=== PATIENT | female | born 1940 | race Caucasian/White ===

== ENCOUNTER 2016-12-10 18:17 | Inpatient (IN) | payer OTHER ==
[~2016-12-10] VITALS: Ht 149.9 cm; Wt 112.9 kg
[~2016-12-10 18:17] MED LIST: ADVAIR 250/501 DISK IH; AMBIEN10 M1 PO; AMBIEN10 MG PO; AMOX TR-K CLV1 EAC4 PO; CALCIUM + D 601 EACH PO; CELEXA10 MG PO; COZAAR50 MG PO; CRESTOR20 MG PO; CYTOTEC100 MCG PO; DOLOPHINE HCL10 MG PO; DONEPEZIL HCL5 MG PO; DOXEPIN HCL10 MG PO; EFFER-K 20 MEQ20 MEQ PO; FLORASTOR250 MG PO; FUROSEMIDE20 MG PO; GLUCOPHAGE500 MG PO; Glucophage PO; K-DUR10 MEQ PO; K-DUR20 MEQ PO; K-Dur PO; K-TAB10 MEQ PO; LASIX40 MG PO; LEVOFLOXACIN500 MG PO; LEXAPRO10 MG PO; LIPITOR20 MG PO; LIPITOR40 MG PO; LISINOPRIL10 MG PO; LOPRESSOR50 MG PO; LUMIGAN 0.50 DROP/2. BOTH EYES; LUMIGAN 0.50 DROP/22 BOTH EYES; LUMIGAN2.5 M1 BOTH EYES; Lopressor PO; METFORMIN HCL500 MG PO; METHADONE5 MG PO; METOPROLOL SUC200 MG PO; MIRALAX17 GM PO; MISOPROSTOL100 MCG PO; NEXIUM40 MG PO; OXYCODONE-APAP1 EACH PO; PREDNISONE20 MG PO; PRILOSEC20 MG PO; PROAIR HFA8.5 GM IH; PROVENTIL,2.5 MG/3 M IH; SINEQUAN50 MG PO; SINGULAIR10 MG PO; STOOL SOFTENER1 EAC2 PO; SULINDAC200 MG PO; TOPROL XL100 MG PO; VITAMIN E100 UNIT PO; XANAX0.125 MG PO; ZOLPIDEM TARTRAT5 MG PO
[2016-12-10 18:45] LABS: EOSINOPHIL (%) 0.6 % (0-5); EOSINOPHIL COUNT 0.1 K/uL (0-0.3); HEMATOCRIT 40.2 % (36.0-46.0); IMMATURE GRANULOCYTE (%) 0.5 % (0.0-0.7); INSTRUMENT ABS NEUTROPHIL CT 5.8 K/uL; LYMPHOCYTE COUNT 1.4 K/uL (1.0-2.8); MCH 27.7 PG (29.0-34.0); MCHC 31.1 G/DL (30.0-36.0); MCV 88.9 FL (83-99); MEAN PLAT.VOLUME 10.8 uM^3 (9.5-12.4); MONOCYTE (%) 8.6 % (3-12); MONOCYTE COUNT 0.7 K/uL (0-0.8); NEUTROPHIL (%) 72.6 % (45-76); NEUTROPHIL COUNT 5.8 K/uL (1.8-6.4); PLATELET COUNT 264 K/uL (156-360); RBC DIS.WIDTH-CV 13.4 % (11.8-14.6); RBC DIS.WIDTH-SD 43.9 % (39-53); RED BLOOD COUNT 4.52 M/uL (3.80-5.20)
[2016-12-10 18:55] LABS: CHLORIDE 94 mEq/L (99-109); POTASSIUM 4.6 mEq/L (3.7-5.4); SODIUM 137 mEq/L (136-147)
[2016-12-10 18:58] LABS: GLUCOSE 193 mg/dL (70-99)
[2016-12-10 18:59] LABS: ANION GAP 12 MEQ/L (2-14)
[2016-12-10 19:00] LABS: TOTAL BILIRUBIN 0.2 mg/dL (0.0-1.0)
[2016-12-10 19:01] LABS: ALKALINE PHOSPHATASE 69 IU/L (3-129); GFR ESTIMATE (CALCULATED) > 59 mL/min/
[2016-12-10 19:03] LABS: UREA NITROGEN (BUN) 24 mg/dL (9-23)
[2016-12-10 19:05] LABS: TROP-I INTERPRETATION NEGATIVE; TROPONIN-I 0.01 ng/mL (0.0-0.30)
[2016-12-10 23:08] VITALS: BP 155/73
[2016-12-10 23:59] LABS: PROTHROMBIN TIME 10.4 (9.2-11.2); PTT 24.8 (25-32)
[2016-12-11 03:51] VITALS: BP 125/67
[2016-12-11 06:22] LABS: HEMATOCRIT 36.9 % (36.0-46.0); MCH 27.3 PG (29.0-34.0); MCHC 30.4 G/DL (30.0-36.0); MEAN PLAT.VOLUME 10.9 uM^3 (9.5-12.4); PLATELET COUNT 218 K/uL (156-360); RBC DIS.WIDTH-CV 13.8 % (11.8-14.6); WHITE BLOOD COUNT 6.5 K/uL (4.1-10.2)
[2016-12-11 06:42] LABS: TROP-I INTERPRETATION NEGATIVE; TROPONIN-I 0.08 ng/mL (0.0-0.30)
[2016-12-11 07:45] LABS: POINT-OF-CARE METER ID UU13113781; POINT-OF-CARE USER ID NUTSLF44
[2016-12-11 07:51] LABS: ANION GAP 9 MEQ/L (2-14); CHLORIDE 99 MEQ/L (99-109); GFR ESTIMATE (CALCULATED) > 59 mL/min/; GLUCOSE 130 mg/dL (70-99); POTASSIUM 4.1 MEQ/L (3.7-5.4); SAMPLE HEMOLYSIS CHECK 0; SAMPLE ICTERIC CHECK 0; SAMPLE LIPEMIA CHECK 0; SODIUM 138 MEQ/L (136-147); UREA NITROGEN (BUN) 14 mg/dL (9-23)
[2016-12-11 09:18] LABS: LIPASE 82 U/L (1.0-51.0)
[2016-12-11 09:33] VITALS: BP 122/100
[2016-12-11 11:40] VITALS: BP 110/82
[2016-12-11 11:43] LABS: POINT-OF-CARE METER ID UU13113781; POINT-OF-CARE USER ID NUTSLF44
[2016-12-11] MEDS ORDERED: METOPROLOL TART50 MG PO (12:53)
[2016-12-11] MEDS ORDERED: ZESTRIL10 MG PO (12:54)
[2016-12-11] MEDS ORDERED: MIRALAX255 GM PO (12:55)
[2016-12-11] MEDS ORDERED: DONEPEZIL HCL5 MG PO (12:55)
[2016-12-11] MEDS ORDERED: ATORVASTATIN CA10 MG PO (12:56)
[2016-12-11 13:37] LABS: TROP-I INTERPRETATION NEGATIVE; TROPONIN-I 0.06 ng/mL (0.0-0.30)
[2016-12-11 16:50] VITALS: BP 136/88
[2016-12-11 17:06] LABS: POINT-OF-CARE METER ID UU13113781; POINT-OF-CARE USER ID NUTSLF44
[2016-12-11 19:20] VITALS: BP 172/72
[2016-12-11 20:58] LABS: POINT-OF-CARE METER ID UU13113781
[2016-12-11 23:53] VITALS: BP 130/69
[2016-12-12] VITALS (7 sets, daily range): BP systolic 106–157; BP diastolic 68–97
[2016-12-12 07:35] LABS: POINT-OF-CARE METER ID UU14174216
[2016-12-12 09:07] LABS: EOSINOPHIL (%) 1.5 % (0-5); EOSINOPHIL COUNT 0.1 K/uL (0-0.3); IMMATURE GRANULOCYTE (%) 0.4 % (0.0-0.7); INSTRUMENT ABS NEUTROPHIL CT 4.7 K/uL; MCH 27.9 PG (29.0-34.0); MCHC 30.5 G/DL (30.0-36.0); MCV 91.3 FL (83-99); MEAN PLAT.VOLUME 10.7 uM^3 (9.5-12.4); MONOCYTE (%) 8.3 % (3-12); MONOCYTE COUNT 0.6 K/uL (0-0.8); NEUTROPHIL COUNT 4.7 K/uL (1.8-6.4); PLATELET COUNT 252 K/uL (156-360); RBC DIS.WIDTH-SD 46.6 % (39-53); RED BLOOD COUNT 4.27 M/uL (3.80-5.20); WHITE BLOOD COUNT 7.4 K/uL (4.1-10.2)
[2016-12-12 09:36] LABS: ANION GAP 8 MEQ/L (2-14); CHLORIDE 95 MEQ/L (99-109); GFR ESTIMATE (CALCULATED) > 59 mL/min/; GLUCOSE 125 mg/dL (70-99); MAGNESIUM 1.9 mg/dl (1.3-2.7); SAMPLE HEMOLYSIS CHECK 0; SAMPLE ICTERIC CHECK 0; SAMPLE LIPEMIA CHECK 0; SODIUM 134 MEQ/L (136-147); UREA NITROGEN (BUN) 9 mg/dL (9-23)
[2016-12-12 11:19] LABS: POINT-OF-CARE METER ID UU14174216
[2016-12-12 16:17] LABS: POINT-OF-CARE METER ID UU13113698
[2016-12-12 21:18] LABS: POINT-OF-CARE METER ID UU14174216
[2016-12-13 04:17] VITALS: BP 159/94
[2016-12-13 06:42] LABS: EOSINOPHIL (%) 0.1 % (0-5); HEMATOCRIT 39.3 % (36.0-46.0); IMMATURE GRANULOCYTE (%) 0.6 % (0.0-0.7); IMMATURE GRANULOCYTE COUNT 0.1 K/uL; LYMPHOCYTE COUNT 0.6 K/uL (1.0-2.8); MCH 27.4 PG (29.0-34.0); MCHC 30.3 G/DL (30.0-36.0); MCV 90.3 FL (83-99); MEAN PLAT.VOLUME 11.3 uM^3 (9.5-12.4); MONOCYTE COUNT 0.1 K/uL (0-0.8); NEUTROPHIL (%) 90.7 % (45-76); PLATELET COUNT 274 K/uL (156-360); RBC DIS.WIDTH-CV 13.9 % (11.8-14.6); RED BLOOD COUNT 4.35 M/uL (3.80-5.20); WHITE BLOOD COUNT 7.7 K/uL (4.1-10.2)
[2016-12-13 07:03] LABS: ANION GAP 8 MEQ/L (2-14); CHLORIDE 91 MEQ/L (99-109); GFR ESTIMATE (CALCULATED) > 59 mL/min/; GLUCOSE 171 mg/dL (70-99); POTASSIUM 4.5 MEQ/L (3.7-5.4); SAMPLE HEMOLYSIS CHECK 0; SAMPLE ICTERIC CHECK 0; SAMPLE LIPEMIA CHECK 0; SODIUM 129 MEQ/L (136-147); UREA NITROGEN (BUN) 12 mg/dL (9-23)
[2016-12-13 08:00] VITALS: BP 127/71
[2016-12-13 09:56] LABS: BASE EXCESS 0.6 mEq/L (-3 to +3); BICARBONATE 29.6 mEq/L (22-26); CARBOXY HGB 1.8 % (0-5); METHEMOGLOBIN 1.7 % (0-1.5); PO2 105 mm Hg (80-100)
[2016-12-13 09:57] LABS: COMMENTS - BLOOD GASES A+C+; DEVICE NC; O2 FLOW 6 L/MIN; PCO2 69 mm Hg (35-45); SITE LR; TOTAL RESP RATE 20 resp/min
[2016-12-13 09:58] LABS: pH 7.24 (7.35-7.45)
[2016-12-13 12:27] LABS: POINT-OF-CARE METER ID UU14174216
[2016-12-13 13:59] VITALS: BP 145/65
[2016-12-13 17:32] VITALS: BP 138/74
[2016-12-13 19:17] VITALS: BP 127/75
[2016-12-13 23:51] VITALS: BP 102/63
[2016-12-14 03:10] VITALS: BP 135/65
[2016-12-14 07:22] LABS: EOSINOPHIL (%) 0 % (0-5); HEMATOCRIT 35.1 % (36.0-46.0); IMMATURE GRANULOCYTE (%) 0.6 % (0.0-0.7); IMMATURE GRANULOCYTE COUNT 0.1 K/uL; INSTRUMENT ABS NEUTROPHIL CT 9.6 K/uL; LYMPHOCYTE COUNT 0.8 K/uL (1.0-2.8); MCH 27.8 PG (29.0-34.0); MCHC 30.5 G/DL (30.0-36.0); MCV 91.2 FL (83-99); MEAN PLAT.VOLUME 11.1 uM^3 (9.5-12.4); MONOCYTE (%) 3.2 % (3-12); MONOCYTE COUNT 0.4 K/uL (0-0.8); NEUTROPHIL (%) 88.8 % (45-76); NEUTROPHIL COUNT 9.6 K/uL (1.8-6.4); PLATELET COUNT 246 K/uL (156-360); RBC DIS.WIDTH-SD 47.1 % (39-53); RED BLOOD COUNT 3.85 M/uL (3.80-5.20); WHITE BLOOD COUNT 10.8 K/uL (4.1-10.2)
[2016-12-14 07:41] LABS: POINT-OF-CARE METER ID UU13113781
[2016-12-14 08:19] LABS: ANION GAP 12 MEQ/L (2-14); CHLORIDE 93 MEQ/L (99-109); GFR ESTIMATE (CALCULATED) > 59 mL/min/; GLUCOSE 198 mg/dL (70-99); POTASSIUM 4.7 MEQ/L (3.7-5.4); SAMPLE HEMOLYSIS CHECK 0; SAMPLE ICTERIC CHECK 0; SAMPLE LIPEMIA CHECK 0; SODIUM 131 MEQ/L (136-147); UREA NITROGEN (BUN) 28 mg/dL (9-23)
[2016-12-14 08:40] VITALS: BP 131/70
[2016-12-14 09:06] LABS: BASE EXCESS 1.5 mEq/L (-3 to +3); CARBOXY HGB 1.9 % (0-5); METHEMOGLOBIN 1.4 % (0-1.5); PCO2 59 mm Hg (35-45); PO2 82 mm Hg (80-100)
[2016-12-14 09:07] LABS: COMMENTS - BLOOD GASES A+C+; DEVICE NC; O2 FLOW 4 L/MIN; SITE LR; TOTAL RESP RATE 24 resp/min
[2016-12-14 11:14] LABS: POINT-OF-CARE METER ID UU13113781
[2016-12-14 15:23] VITALS: BP 119/79
[2016-12-14 16:34] LABS: POINT-OF-CARE METER ID UU13113781
[2016-12-14 19:00] VITALS: BP 125/85
[2016-12-14 21:05] LABS: POINT-OF-CARE METER ID UU13113698
[2016-12-14 23:40] VITALS: BP 113/77
[2016-12-15 03:40] VITALS: BP 114/62
[2016-12-15 07:10] LABS: EOSINOPHIL (%) 0 % (0-5); HEMATOCRIT 33.7 % (36.0-46.0); IMMATURE GRANULOCYTE (%) 1.1 % (0.0-0.7); IMMATURE GRANULOCYTE COUNT 0.1 K/uL; INSTRUMENT ABS NEUTROPHIL CT 9.2 K/uL; LYMPHOCYTE COUNT 0.9 K/uL (1.0-2.8); MCH 27.5 PG (29.0-34.0); MCHC 30.3 G/DL (30.0-36.0); MCV 90.8 FL (83-99); MEAN PLAT.VOLUME 11.4 uM^3 (9.5-12.4); MONOCYTE (%) 8.8 % (3-12); NEUTROPHIL (%) 81.9 % (45-76); NEUTROPHIL COUNT 9.2 K/uL (1.8-6.4); PLATELET COUNT 233 K/uL (156-360); RBC DIS.WIDTH-CV 14.2 % (11.8-14.6); RBC DIS.WIDTH-SD 46.9 % (39-53); RED BLOOD COUNT 3.71 M/uL (3.80-5.20); WHITE BLOOD COUNT 11.2 K/uL (4.1-10.2)
[2016-12-15 08:00] VITALS: BP 133/59
[2016-12-15 08:35] LABS: ANION GAP 12 MEQ/L (2-14); CHLORIDE 87 MEQ/L (99-109); GFR ESTIMATE (CALCULATED) > 59 mL/min/; GLUCOSE 148 mg/dL (70-99); SAMPLE HEMOLYSIS CHECK 0; SAMPLE ICTERIC CHECK 0; SAMPLE LIPEMIA CHECK 0; SODIUM 126 MEQ/L (136-147)
[2016-12-15 08:37] LABS: UREA NITROGEN (BUN) 48 mg/dL (9-23)
[2016-12-15 11:46] LABS: POINT-OF-CARE METER ID UU14174216
[2016-12-15 12:14] VITALS: BP 109/52
[2016-12-15 15:25] VITALS: BP 104/62
[2016-12-15 20:00] VITALS: BP 110/59
[2016-12-15 22:05] LABS: POINT-OF-CARE METER ID UU14174216
[2016-12-15 23:55] VITALS: BP 106/58
[2016-12-16] VITALS (16 sets, daily range): BP systolic 100–145; BP diastolic 47–101
[2016-12-16 03:54] LABS: EOSINOPHIL (%) 0 % (0-5); HEMATOCRIT 34.9 % (36.0-46.0); IMMATURE GRANULOCYTE (%) 1.2 % (0.0-0.7); IMMATURE GRANULOCYTE COUNT 0.1 K/uL; INSTRUMENT ABS NEUTROPHIL CT 7.2 K/uL; LYMPHOCYTE COUNT 1.2 K/uL (1.0-2.8); MCH 27.5 PG (29.0-34.0); MCHC 30.1 G/DL (30.0-36.0); MCV 91.4 FL (83-99); MEAN PLAT.VOLUME 11.5 uM^3 (9.5-12.4); MONOCYTE (%) 10.9 % (3-12); NEUTROPHIL (%) 74.9 % (45-76); NEUTROPHIL COUNT 7.2 K/uL (1.8-6.4); PLATELET COUNT 222 K/uL (156-360); RBC DIS.WIDTH-CV 14.1 % (11.8-14.6); RBC DIS.WIDTH-SD 47.7 % (39-53); RED BLOOD COUNT 3.82 M/uL (3.80-5.20); WHITE BLOOD COUNT 9.6 K/uL (4.1-10.2)
[2016-12-16 04:05] LABS: CHLORIDE 90 mEq/L (99-109); POTASSIUM 5.2 mEq/L (3.7-5.4); SODIUM 123 mEq/L (136-147)
[2016-12-16 04:06] LABS: MAGNESIUM 2.1 mg/dL (1.3-2.7)
[2016-12-16 04:08] LABS: GLUCOSE 126 mg/dL (70-99)
[2016-12-16 04:09] LABS: ANION GAP 9 MEQ/L (2-14)
[2016-12-16 04:12] LABS: ALKALINE PHOSPHATASE 48 IU/L (3-129); GFR ESTIMATE (CALCULATED) 46 mL/min/; TOTAL BILIRUBIN 0.3 mg/dL (0.0-1.0)
[2016-12-16 04:13] LABS: UREA NITROGEN (BUN) 58 mg/dL (9-23)
[2016-12-16 04:15] LABS: URIC ACID 7.1 mg/dL (3.1-9.2)
[2016-12-16 07:39] LABS: POINT-OF-CARE METER ID UU14174216
[2016-12-16 10:22] LABS: BASE EXCESS -1.9 mEq/L (-3 to +3); BICARBONATE 27.5 mEq/L (22-26); METHEMOGLOBIN 1.6 % (0-1.5)
[2016-12-16 10:23] LABS: COMMENTS - BLOOD GASES A+C+; DEVICE NC; O2 FLOW 3 L/MIN; PCO2 72 mm Hg (35-45); PO2 59 mm Hg (80-100); SITE RR; pH 7.19 (7.35-7.45)
[2016-12-16 12:49] LABS: POINT-OF-CARE METER ID UU13113803; POINT-OF-CARE USER ID 606021424
[2016-12-16 13:26] LABS: METH RESISTANT S AUREUS PCR POSITIVE (NEGATIVE)
[2016-12-16 13:28] LABS: PROBE CHECK PASS
[2016-12-16 16:50] LABS: POINT-OF-CARE METER ID UU13113731
[2016-12-16 17:28] LABS: BASE EXCESS 0.8 mEq/L (-3 to +3); BICARBONATE 27.4 mEq/L (22-26); CARBOXY HGB 2.1 % (0-5); METHEMOGLOBIN 1.7 % (0-1.5)
[2016-12-16 17:29] LABS: COMMENTS - BLOOD GASES C+A/NA; PCO2 52 mm Hg (35-45); PO2 102 mm Hg (80-100); SITE RR; pH 7.33 (7.35-7.45)
[2016-12-16 17:30] LABS: CONTINUOUS POS AIRWAY PRESSURE 5 cm H2O; DEVICE 980 VENTILATOR; FI02 30 %; MODE NIPPV; PRES. SUPPORT 12 CM/H2O; TOTAL RESP RATE 18 resp/min
[2016-12-16 19:49] LABS: ANION GAP 8 MEQ/L (2-14); CHLORIDE 91 MEQ/L (99-109); POTASSIUM 5.1 MEQ/L (3.7-5.4); SAMPLE HEMOLYSIS CHECK 0; SAMPLE ICTERIC CHECK 0; SAMPLE LIPEMIA CHECK 0; SODIUM 123 MEQ/L (136-147)
[2016-12-16 19:54] LABS: GFR ESTIMATE (CALCULATED) > 59 mL/min/; GLUCOSE 135 mg/dL (70-99); UREA NITROGEN (BUN) 50 mg/dL (9-23)
[2016-12-17] VITALS (24 sets, daily range): BP systolic 90–184; BP diastolic 52–102
[2016-12-17 07:32] LABS: POINT-OF-CARE METER ID UU13113803
[2016-12-17 08:38] LABS: EOSINOPHIL (%) 0 % (0-5); HEMATOCRIT 35.2 % (36.0-46.0); IMMATURE GRANULOCYTE (%) 1.4 % (0.0-0.7); IMMATURE GRANULOCYTE COUNT 0.1 K/uL; INSTRUMENT ABS NEUTROPHIL CT 6.5 K/uL; MCHC 30.4 G/DL (30.0-36.0); MCV 88.9 FL (83-99); MEAN PLAT.VOLUME 11.2 uM^3 (9.5-12.4); MONOCYTE (%) 10.7 % (3-12); MONOCYTE COUNT 0.9 K/uL (0-0.8); NEUTROPHIL (%) 75.9 % (45-76); NEUTROPHIL COUNT 6.5 K/uL (1.8-6.4); NRBC (%) 0.2 /100 WBC (0-0); PLATELET COUNT 224 K/uL (156-360); RBC DIS.WIDTH-CV 14.2 % (11.8-14.6); RBC DIS.WIDTH-SD 45.7 % (39-53); RED BLOOD COUNT 3.96 M/uL (3.80-5.20); WHITE BLOOD COUNT 8.5 K/uL (4.1-10.2)
[2016-12-17 09:32] LABS: ANION GAP 8 MEQ/L (2-14); CHLORIDE 95 MEQ/L (99-109); GFR ESTIMATE (CALCULATED) > 59 mL/min/; GLUCOSE 180 mg/dL (70-99); POTASSIUM 4.4 MEQ/L (3.7-5.4); SAMPLE HEMOLYSIS CHECK 0; SAMPLE ICTERIC CHECK 0; SAMPLE LIPEMIA CHECK 0; SODIUM 128 MEQ/L (136-147); UREA NITROGEN (BUN) 36 mg/dL (9-23)
[2016-12-17 12:04] LABS: POINT-OF-CARE METER ID UU13113803
[2016-12-17 17:10] LABS: POINT-OF-CARE METER ID UU13113803
[2016-12-17 21:37] LABS: POINT-OF-CARE METER ID UU13113803
[2016-12-18] VITALS (24 sets, daily range): BP systolic 109–185; BP diastolic 49–133
[2016-12-18 05:51] LABS: POINT-OF-CARE METER ID UU13113803
[2016-12-18 05:59] LABS: EOSINOPHIL (%) 0.1 % (0-5); HEMATOCRIT 35.6 % (36.0-46.0); IMMATURE GRANULOCYTE (%) 1.6 % (0.0-0.7); IMMATURE GRANULOCYTE COUNT 0.1 K/uL; INSTRUMENT ABS NEUTROPHIL CT 5.1 K/uL; MCH 27.9 PG (29.0-34.0); MCHC 31.5 G/DL (30.0-36.0); MCV 88.6 FL (83-99); MEAN PLAT.VOLUME 11.1 uM^3 (9.5-12.4); MONOCYTE (%) 9.4 % (3-12); MONOCYTE COUNT 0.7 K/uL (0-0.8); NEUTROPHIL (%) 74.1 % (45-76); NEUTROPHIL COUNT 5.1 K/uL (1.8-6.4); PLATELET COUNT 221 K/uL (156-360); RBC DIS.WIDTH-CV 14.5 % (11.8-14.6); RBC DIS.WIDTH-SD 46.7 % (39-53); RED BLOOD COUNT 4.02 M/uL (3.80-5.20); WHITE BLOOD COUNT 6.9 K/uL (4.1-10.2)
[2016-12-18 06:23] LABS: ANION GAP 7 MEQ/L (2-14); CHLORIDE 93 MEQ/L (99-109); GFR ESTIMATE (CALCULATED) > 59 mL/min/; GLUCOSE 174 mg/dL (70-99); POTASSIUM 4.4 MEQ/L (3.7-5.4); SAMPLE HEMOLYSIS CHECK 0; SAMPLE ICTERIC CHECK 0; SAMPLE LIPEMIA CHECK 0; SODIUM 132 MEQ/L (136-147); UREA NITROGEN (BUN) 23 mg/dL (9-23)
[2016-12-19] VITALS (12 sets, daily range): BP systolic 81–149; BP diastolic 62–95
[2016-12-19 06:51] LABS: ANION GAP 6 MEQ/L (2-14); CHLORIDE 89 MEQ/L (99-109); GFR ESTIMATE (CALCULATED) > 59 mL/min/; GLUCOSE 154 mg/dL (70-99); POTASSIUM 4.5 MEQ/L (3.7-5.4); SAMPLE HEMOLYSIS CHECK 0; SAMPLE ICTERIC CHECK 0; SAMPLE LIPEMIA CHECK 0; SODIUM 128 MEQ/L (136-147); UREA NITROGEN (BUN) 20 mg/dL (9-23)
[2016-12-19 12:08] LABS: POINT-OF-CARE METER ID UU14174217
[2016-12-19 17:55] LABS: POINT-OF-CARE METER ID UU14162636
[2016-12-19 22:07] LABS: POINT-OF-CARE METER ID UU14162636
[2016-12-20] VITALS (13 sets, daily range): BP systolic 86–166; BP diastolic 43–97
[2016-12-20 05:41] LABS: EOSINOPHIL (%) 0.1 % (0-5); HEMATOCRIT 35.3 % (36.0-46.0); IMMATURE GRANULOCYTE (%) 2.1 % (0.0-0.7); IMMATURE GRANULOCYTE COUNT 0.2 K/uL; INSTRUMENT ABS NEUTROPHIL CT 6.3 K/uL; MCH 27.7 PG (29.0-34.0); MCHC 30.9 G/DL (30.0-36.0); MCV 89.6 FL (83-99); MEAN PLAT.VOLUME 11.1 uM^3 (9.5-12.4); MONOCYTE (%) 8.1 % (3-12); MONOCYTE COUNT 0.7 K/uL (0-0.8); NEUTROPHIL (%) 77.8 % (45-76); NEUTROPHIL COUNT 6.3 K/uL (1.8-6.4); PLATELET COUNT 200 K/uL (156-360); RBC DIS.WIDTH-CV 14.3 % (11.8-14.6); RBC DIS.WIDTH-SD 46.6 % (39-53); RED BLOOD COUNT 3.94 M/uL (3.80-5.20)
[2016-12-20 06:02] LABS: ANION GAP 4 MEQ/L (2-14); CHLORIDE 91 MEQ/L (99-109); GFR ESTIMATE (CALCULATED) > 59 mL/min/; GLUCOSE 151 mg/dL (70-99); POTASSIUM 4.8 MEQ/L (3.7-5.4); SAMPLE HEMOLYSIS CHECK 0; SAMPLE ICTERIC CHECK 0; SAMPLE LIPEMIA CHECK 0; SODIUM 131 MEQ/L (136-147); UREA NITROGEN (BUN) 15 mg/dL (9-23)
[2016-12-20 11:35] LABS: POINT-OF-CARE METER ID UU13113803
[2016-12-20 12:21] LABS: BASE EXCESS 8.5 mEq/L (-3 to +3); CARBOXY HGB 2.3 % (0-5); METHEMOGLOBIN 1.5 % (0-1.5); PCO2 53 mm Hg (35-45); pH 7.42 (7.35-7.45)
[2016-12-20 12:23] LABS: BICARBONATE 34.4 mEq/L (22-26); COMMENTS - BLOOD GASES C+; PO2 57 mm Hg (80-100); SITE LR
[2016-12-20 12:24] LABS: CONTINUOUS POS AIRWAY PRESSURE 8 cm H2O; DEVICE BIPAP; O2 FLOW 2.5 L/MIN; PRES. SUPPORT 12 CM/H2O; TOTAL RESP RATE 22 resp/min
[2016-12-20] MEDS ORDERED: VITAMIN D5000 UNI1 PO (17:34)
[2016-12-20 17:38] LABS: POINT-OF-CARE METER ID UU13113803
[2016-12-20 22:43] LABS: POINT-OF-CARE METER ID UU14174217
[2016-12-21] VITALS (11 sets, daily range): BP systolic 94–152; BP diastolic 59–99
[2016-12-21 05:57] LABS: EOSINOPHIL (%) 0.1 % (0-5); HEMATOCRIT 34.7 % (36.0-46.0); IMMATURE GRANULOCYTE (%) 1.4 % (0.0-0.7); IMMATURE GRANULOCYTE COUNT 0.1 K/uL; INSTRUMENT ABS NEUTROPHIL CT 5.8 K/uL; LYMPHOCYTE COUNT 1.3 K/uL (1.0-2.8); MCH 27.6 PG (29.0-34.0); MCHC 31.1 G/DL (30.0-36.0); MCV 88.7 FL (83-99); MEAN PLAT.VOLUME 11.1 uM^3 (9.5-12.4); MONOCYTE (%) 8.9 % (3-12); MONOCYTE COUNT 0.7 K/uL (0-0.8); NEUTROPHIL (%) 73.4 % (45-76); NEUTROPHIL COUNT 5.8 K/uL (1.8-6.4); PLATELET COUNT 196 K/uL (156-360); RBC DIS.WIDTH-CV 14.8 % (11.8-14.6); RBC DIS.WIDTH-SD 46.9 % (39-53); RED BLOOD COUNT 3.91 M/uL (3.80-5.20)
[2016-12-21 06:10] LABS: CHLORIDE 92 MEQ/L (99-109); POTASSIUM 4.4 MEQ/L (3.7-5.4); SODIUM 131 MEQ/L (136-147)
[2016-12-21 06:35] LABS: ANION GAP 6 MEQ/L (2-14); GFR ESTIMATE (CALCULATED) > 59 mL/min/; GLUCOSE 159 mg/dL (70-99); SAMPLE HEMOLYSIS CHECK 0; SAMPLE ICTERIC CHECK 0; SAMPLE LIPEMIA CHECK 0; UREA NITROGEN (BUN) 17 mg/dL (9-23)
[2016-12-21 12:40] LABS: POINT-OF-CARE METER ID UU14162636
[2016-12-21 18:18] LABS: POINT-OF-CARE METER ID UU14162636
[2016-12-21 23:04] LABS: POINT-OF-CARE METER ID UU14162636
[2016-12-22] VITALS (7 sets, daily range): BP systolic 127–156; BP diastolic 65–113
[2016-12-22 05:49] LABS: HEMATOCRIT 36.7 % (36.0-46.0); MCH 28.1 PG (29.0-34.0); MCHC 31.6 G/DL (30.0-36.0); MCV 88.9 FL (83-99); MEAN PLAT.VOLUME 11.1 uM^3 (9.5-12.4); PLATELET COUNT 240 K/uL (156-360); RBC DIS.WIDTH-CV 14.8 % (11.8-14.6); RBC DIS.WIDTH-SD 47.4 % (39-53); RED BLOOD COUNT 4.13 M/uL (3.80-5.20); WHITE BLOOD COUNT 9.4 K/uL (4.1-10.2)
[2016-12-22 06:19] LABS: ANION GAP 7 MEQ/L (2-14); CHLORIDE 95 MEQ/L (99-109); GFR ESTIMATE (CALCULATED) > 59 mL/min/; GLUCOSE 158 mg/dL (70-99); POTASSIUM 4.6 MEQ/L (3.7-5.4); SAMPLE HEMOLYSIS CHECK 0; SAMPLE ICTERIC CHECK 0; SAMPLE LIPEMIA CHECK 0; SODIUM 134 MEQ/L (136-147); UREA NITROGEN (BUN) 17 mg/dL (9-23)
[2016-12-22 12:31] LABS: POINT-OF-CARE METER ID UU13113731
[2016-12-22 22:23] LABS: BASE EXCESS 2.2 mEq/L (-3 to +3); BICARBONATE 30.8 mEq/L (22-26); CARBOXY HGB 2.1 % (0-5); COMMENTS - BLOOD GASES C+; DEVICE HHFNC; METHEMOGLOBIN 1.6 % (0-1.5); PCO2 67 mm Hg (35-45); PO2 78 mm Hg (80-100); SITE RR; pH 7.27 (7.35-7.45)
[2016-12-22 22:24] LABS: FI02 60 %; O2 FLOW 40 L/MIN; TOTAL RESP RATE 24 resp/min
[2016-12-23] VITALS (7 sets, daily range): BP systolic 126–149; BP diastolic 68–95
[2016-12-23 06:25] LABS: ANION GAP 8 MEQ/L (2-14); CHLORIDE 98 MEQ/L (99-109); GFR ESTIMATE (CALCULATED) > 59 mL/min/; GLUCOSE 181 mg/dL (70-99); POTASSIUM 4.7 MEQ/L (3.7-5.4); SAMPLE HEMOLYSIS CHECK 0; SAMPLE ICTERIC CHECK 0; SAMPLE LIPEMIA CHECK 0; SODIUM 137 MEQ/L (136-147); UREA NITROGEN (BUN) 24 mg/dL (9-23)
[2016-12-23 11:59] LABS: POINT-OF-CARE METER ID UU13113803
[2016-12-23 22:17] LABS: POINT-OF-CARE METER ID UU13113803; POINT-OF-CARE USER ID RADDRS44
[2016-12-24] VITALS (8 sets, daily range): BP systolic 119–148; BP diastolic 70–90
[2016-12-24 05:45] LABS: EOSINOPHIL (%) 0 % (0-5); HEMATOCRIT 37.4 % (36.0-46.0); IMMATURE GRANULOCYTE (%) 1.8 % (0.0-0.7); IMMATURE GRANULOCYTE COUNT 0.2 K/uL; INSTRUMENT ABS NEUTROPHIL CT 7.2 K/uL; LYMPHOCYTE COUNT 0.6 K/uL (1.0-2.8); MCH 27.6 PG (29.0-34.0); MCHC 30.2 G/DL (30.0-36.0); MCV 91.2 FL (83-99); MEAN PLAT.VOLUME 11.2 uM^3 (9.5-12.4); MONOCYTE (%) 7.3 % (3-12); MONOCYTE COUNT 0.6 K/uL (0-0.8); NEUTROPHIL (%) 83.8 % (45-76); NEUTROPHIL COUNT 7.2 K/uL (1.8-6.4); PLATELET COUNT 233 K/uL (156-360); RBC DIS.WIDTH-CV 15.3 % (11.8-14.6); RBC DIS.WIDTH-SD 50.4 % (39-53); WHITE BLOOD COUNT 8.6 K/uL (4.1-10.2)
[2016-12-24 08:42] LABS: POINT-OF-CARE METER ID UU14162636
[2016-12-24 09:49] LABS: CHLORIDE 99 mEq/L (99-109); POTASSIUM 4.6 mEq/L (3.7-5.4); SODIUM 137 mEq/L (136-147)
[2016-12-24 09:51] LABS: GLUCOSE 236 mg/dL (70-99)
[2016-12-24 09:53] LABS: ANION GAP 16 MEQ/L (2-14)
[2016-12-24 09:55] LABS: GFR ESTIMATE (CALCULATED) 46 mL/min/
[2016-12-24 09:57] LABS: UREA NITROGEN (BUN) 38 mg/dL (9-23)
[2016-12-24 11:06] LABS: VANCOMYCIN, TROUGH 37.4 MCG/ML (10-20)
[2016-12-24 12:34] LABS: POINT-OF-CARE METER ID UU14162636
[2016-12-24 17:20] LABS: POINT-OF-CARE METER ID UU13113731
[2016-12-24 21:30] LABS: POINT-OF-CARE METER ID UU14174217
[2016-12-25] VITALS (13 sets, daily range): BP systolic 92–108; BP diastolic 39–87
[2016-12-25 06:14] LABS: ANION GAP 11 MEQ/L (2-14); CHLORIDE 103 MEQ/L (99-109); SAMPLE HEMOLYSIS CHECK 1; SAMPLE ICTERIC CHECK 0; SAMPLE LIPEMIA CHECK 0; SODIUM 137 MEQ/L (136-147)
[2016-12-25 06:22] LABS: GFR ESTIMATE (CALCULATED) 46 mL/min/; GLUCOSE 213 mg/dL (70-99); UREA NITROGEN (BUN) 44 mg/dL (9-23)
[2016-12-25 06:25] LABS: POTASSIUM 5.2 MEQ/L (3.7-5.4)
[2016-12-25 06:42] LABS: HEMATOCRIT 39.5 % (36.0-46.0); MCH 27.7 PG (29.0-34.0); MCHC 29.6 G/DL (30.0-36.0); MCV 93.6 FL (83-99); MEAN PLAT.VOLUME 11.4 uM^3 (9.5-12.4); NRBC (%) 0.3 /100 WBC (0-0); PLATELET COUNT 167 K/uL (156-360); RBC DIS.WIDTH-CV 15.4 % (11.8-14.6); RBC DIS.WIDTH-SD 52.4 % (39-53); RED BLOOD COUNT 4.22 M/uL (3.80-5.20); WHITE BLOOD COUNT 8.9 K/uL (4.1-10.2)
[2016-12-25 11:04] LABS: BASE EXCESS -1.1 mEq/L (-3 to +3); BICARBONATE 28.5 mEq/L (22-26); CARBOXY HGB 2.2 % (0-5); METHEMOGLOBIN 1.3 % (0-1.5); PO2 72 mm Hg (80-100)
[2016-12-25 11:05] LABS: PCO2 73 mm Hg (35-45)
[2016-12-25 11:06] LABS: SITE LR
[2016-12-25 11:07] LABS: CONTINUOUS POS AIRWAY PRESSURE 8 cm H2O; DEVICE BIPAP; TOTAL RESP RATE 10 resp/min
[2016-12-25 11:08] LABS: COMMENTS - BLOOD GASES C+A-N/A; O2 FLOW 15 L/MIN; PRES. SUPPORT 12 CM/H2O
[2016-12-25 11:41] LABS: INTER. NORMALIZED RATIO 1.2; PROTHROMBIN TIME 12.7 (9.2-11.2)
[2016-12-25 11:48] LABS: PTT 22.2 (25-32)
[2016-12-25 13:45] LABS: POINT-OF-CARE METER ID UU13113731
[2016-12-25 13:46] LABS: BASE EXCESS 0.2 mEq/L (-3 to +3); CARBOXY HGB 1.8 % (0-5); METHEMOGLOBIN 1.7 % (0-1.5); PCO2 46 mm Hg (35-45); pH 7.36 (7.35-7.45)
[2016-12-25 13:47] LABS: COMMENTS - BLOOD GASES C+; DEVICE VENT; FI02 80 %; MECHANICAL RATE 16 resp/min; MODE AC; PEEP 5 CM/H20; PO2 137 mm Hg (80-100); SITE RB; TIDAL VOLUME 460 ML; TOTAL RESP RATE 16 resp/min
[2016-12-25 17:41] LABS: POINT-OF-CARE METER ID UU13113731
[2016-12-26] VITALS (24 sets, daily range): BP systolic 85–129; BP diastolic 44–75
[2016-12-26 01:40] LABS: POINT-OF-CARE METER ID UU14174217; POINT-OF-CARE USER ID RADDRS44
[2016-12-26 06:06] LABS: POINT-OF-CARE METER ID UU14162636; POINT-OF-CARE USER ID RADDRS44
[2016-12-26 07:16] LABS: ANION GAP 13 MEQ/L (2-14); CHLORIDE 102 MEQ/L (99-109); GFR ESTIMATE (CALCULATED) 36 mL/min/; GLUCOSE 289 mg/dL (70-99); POTASSIUM 4.6 MEQ/L (3.7-5.4); SAMPLE HEMOLYSIS CHECK 0; SAMPLE ICTERIC CHECK 0; SAMPLE LIPEMIA CHECK 0; SODIUM 137 MEQ/L (136-147); UREA NITROGEN (BUN) 52 mg/dL (9-23)
[2016-12-26 11:54] LABS: POINT-OF-CARE METER ID UU14174217
[2016-12-26 17:30] LABS: POINT-OF-CARE METER ID UU14174217
[2016-12-27] VITALS (24 sets, daily range): BP systolic 75–141; BP diastolic 44–87
[2016-12-27 00:38] LABS: POINT-OF-CARE METER ID UU14174217
[2016-12-27 06:01] LABS: EOSINOPHIL (%) 0 % (0-5); HEMATOCRIT 33.1 % (36.0-46.0); IMMATURE GRANULOCYTE (%) 0.9 % (0.0-0.7); IMMATURE GRANULOCYTE COUNT 0.1 K/uL; LYMPHOCYTE COUNT 0.2 K/uL (1.0-2.8); MCH 27.9 PG (29.0-34.0); MCHC 31.1 G/DL (30.0-36.0); MCV 89.7 FL (83-99); MEAN PLAT.VOLUME 11.7 uM^3 (9.5-12.4); MONOCYTE (%) 5.7 % (3-12); MONOCYTE COUNT 0.5 K/uL (0-0.8); NEUTROPHIL (%) 91.1 % (45-76); NRBC (%) 0.3 /100 WBC (0-0); PLATELET COUNT 153 K/uL (156-360); RBC DIS.WIDTH-CV 15.8 % (11.8-14.6); RBC DIS.WIDTH-SD 51.4 % (39-53); RED BLOOD COUNT 3.69 M/uL (3.80-5.20); WHITE BLOOD COUNT 8.8 K/uL (4.1-10.2)
[2016-12-27 06:19] LABS: POINT-OF-CARE METER ID UU13113803
[2016-12-27 06:21] LABS: ANION GAP 12 MEQ/L (2-14); CHLORIDE 105 MEQ/L (99-109); GFR ESTIMATE (CALCULATED) 39 mL/min/; GLUCOSE 295 mg/dL (70-99); POTASSIUM 4.1 MEQ/L (3.7-5.4); SAMPLE HEMOLYSIS CHECK 0; SAMPLE ICTERIC CHECK 0; SAMPLE LIPEMIA CHECK 0; SODIUM 137 MEQ/L (136-147); UREA NITROGEN (BUN) 51 mg/dL (9-23)
[2016-12-27 11:10] LABS: MAGNESIUM 2.5 mg/dl (1.3-2.7)
[2016-12-27 12:08] LABS: POINT-OF-CARE METER ID UU14174217
[2016-12-27 16:37] LABS: POINT-OF-CARE METER ID UU14174217
[2016-12-27 19:52] LABS: POINT-OF-CARE METER ID UU13113803
[2016-12-27 23:17] LABS: POINT-OF-CARE METER ID UU13113803
[2016-12-28] VITALS (24 sets, daily range): BP systolic 95–132; BP diastolic 52–76
[2016-12-28 05:17] LABS: POINT-OF-CARE METER ID UU13113803
[2016-12-28 06:24] LABS: EOSINOPHIL (%) 0 % (0-5); HEMATOCRIT 33.4 % (36.0-46.0); IMMATURE GRANULOCYTE COUNT 0.1 K/uL; INSTRUMENT ABS NEUTROPHIL CT 11.3 K/uL; LYMPHOCYTE COUNT 0.2 K/uL (1.0-2.8); MCH 27.5 PG (29.0-34.0); MCHC 30.5 G/DL (30.0-36.0); MEAN PLAT.VOLUME 11.5 uM^3 (9.5-12.4); MONOCYTE (%) 4.5 % (3-12); MONOCYTE COUNT 0.6 K/uL (0-0.8); NEUTROPHIL (%) 93.1 % (45-76); NEUTROPHIL COUNT 11.3 K/uL (1.8-6.4); NRBC (%) 0.3 /100 WBC (0-0); PLATELET COUNT 143 K/uL (156-360); RBC DIS.WIDTH-CV 15.8 % (11.8-14.6); RBC DIS.WIDTH-SD 51.3 % (39-53); RED BLOOD COUNT 3.71 M/uL (3.80-5.20)
[2016-12-28 06:33] LABS: INTER. NORMALIZED RATIO 1.3
[2016-12-28 06:40] LABS: ANION GAP 11 MEQ/L (2-14); CHLORIDE 103 MEQ/L (99-109); GFR ESTIMATE (CALCULATED) 36 mL/min/; GLUCOSE 259 mg/dL (70-99); MAGNESIUM 2.6 mg/dl (1.3-2.7); POTASSIUM 3.8 MEQ/L (3.7-5.4); SAMPLE HEMOLYSIS CHECK 0; SAMPLE ICTERIC CHECK 0; SAMPLE LIPEMIA CHECK 0; SODIUM 140 MEQ/L (136-147); UREA NITROGEN (BUN) 58 mg/dL (9-23)
[2016-12-28 06:46] LABS: WHITE BLOOD COUNT 12.2 K/uL (4.1-10.2)
[2016-12-28 11:36] LABS: POINT-OF-CARE METER ID UU13113803
[2016-12-28 16:04] LABS: POINT-OF-CARE METER ID UU14174217
[2016-12-28 19:54] LABS: POINT-OF-CARE METER ID UU14174217
[2016-12-29] VITALS (22 sets, daily range): BP systolic 112–183; BP diastolic 60–108
[2016-12-29 01:18] LABS: POINT-OF-CARE METER ID UU14162636
[2016-12-29 05:49] LABS: POINT-OF-CARE METER ID UU13113731
[2016-12-29 06:03] LABS: EOSINOPHIL (%) 0 % (0-5); HEMATOCRIT 31.9 % (36.0-46.0); IMMATURE GRANULOCYTE (%) 0.8 % (0.0-0.7); IMMATURE GRANULOCYTE COUNT 0.1 K/uL; INSTRUMENT ABS NEUTROPHIL CT 12.1 K/uL; LYMPHOCYTE COUNT 0.1 K/uL (1.0-2.8); MCH 27.5 PG (29.0-34.0); MCV 88.6 FL (83-99); MEAN PLAT.VOLUME 12.2 uM^3 (9.5-12.4); MONOCYTE (%) 5.1 % (3-12); MONOCYTE COUNT 0.7 K/uL (0-0.8); NEUTROPHIL (%) 93.1 % (45-76); NEUTROPHIL COUNT 12.1 K/uL (1.8-6.4); PLATELET COUNT 147 K/uL (156-360); RBC DIS.WIDTH-CV 15.9 % (11.8-14.6); RBC DIS.WIDTH-SD 50.6 % (39-53)
[2016-12-29 06:23] LABS: ANION GAP 12 MEQ/L (2-14); CHLORIDE 101 MEQ/L (99-109); GFR ESTIMATE (CALCULATED) 36 mL/min/; GLUCOSE 242 mg/dL (70-99); MAGNESIUM 2.6 mg/dl (1.3-2.7); SAMPLE HEMOLYSIS CHECK 1; SAMPLE ICTERIC CHECK 0; SAMPLE LIPEMIA CHECK 0; SODIUM 139 MEQ/L (136-147); UREA NITROGEN (BUN) 57 mg/dL (9-23)
[2016-12-29 06:29] LABS: POTASSIUM 3.9 MEQ/L (3.7-5.4)
[2016-12-29 10:39] LABS: POINT-OF-CARE METER ID UU14174217
[2016-12-29 11:40] LABS: BASE EXCESS 2.4 mEq/L (-3 to +3); BICARBONATE 29.1 mEq/L (22-26); METHEMOGLOBIN 1.8 % (0-1.5); pH 7.34 (7.35-7.45)
[2016-12-29 11:41] LABS: COMMENTS - BLOOD GASES NAC+; DEVICE VENT; FI02 40 %; MODE TUBE COMPENSATION; PCO2 54 mm Hg (35-45); PO2 62 mm Hg (80-100); SITE LR
[2016-12-29 11:42] LABS: CONTINUOUS POS AIRWAY PRESSURE 5 cm H2O; TOTAL RESP RATE 26 resp/min
[2016-12-29 14:51] LABS: TYPE OF FLUID PLEURAL
[2016-12-29 15:57] LABS: GLUCOSE 209 mg/dL (70-99); LACTATE DEHYDROGENASE 205 IU/L (20-246)
[2016-12-29 15:58] LABS: BODY FLUID LDH 119 IU/L
[2016-12-29 16:05] LABS: BODY FLUID EOSINOPHILS 0 % (0-25); BODY FLUID RBC'S 12000 /MM^3 (0-100); BODY FLUID WBC'S 83 /MM^3 (0-500); MONONUCLEAR WBC'S 76 %; POLYNUCLEAR WBC'S 24 % (0-25)
[2016-12-29 16:13] LABS: BODY FLUID PROTEIN < 3.0 G/DL
[2016-12-29 17:43] LABS: POINT-OF-CARE METER ID UU14174217
[2016-12-29 18:46] LABS: BASE EXCESS 1.2 mEq/L (-3 to +3); BICARBONATE 31.3 mEq/L (22-26); CARBOXY HGB 1.9 % (0-5); METHEMOGLOBIN 1.8 % (0-1.5)
[2016-12-29 18:47] LABS: COMMENTS - BLOOD GASES A+C+; DEVICE NCHH; FI02 100 %; O2 FLOW 40 L/MIN; PCO2 82 mm Hg (35-45); PO2 76 mm Hg (80-100); SITE RR
[2016-12-29 18:48] LABS: pH 7.19 (7.35-7.45)
[2016-12-29 22:18] LABS: BASE EXCESS 3.1 mEq/L (-3 to +3); BICARBONATE 29.4 mEq/L (22-26); CARBOXY HGB 1.8 % (0-5); METHEMOGLOBIN 1.4 % (0-1.5); PO2 71 mm Hg (80-100)
[2016-12-29 22:19] LABS: COMMENTS - BLOOD GASES A+C+; CONTINUOUS POS AIRWAY PRESSURE 5 cm H2O; DEVICE VENT; FI02 50 %; MODE SPON; PCO2 52 mm Hg (35-45); PRES. SUPPORT 15 CM/H2O; SITE RR; TOTAL RESP RATE 18 resp/min; pH 7.36 (7.35-7.45)
[2016-12-30] VITALS (22 sets, daily range): BP systolic 106–164; BP diastolic 54–87
[2016-12-30 01:08] LABS: POINT-OF-CARE METER ID UU13113731
[2016-12-30 05:43] LABS: POINT-OF-CARE METER ID UU13113731
[2016-12-30 06:57] LABS: ANION GAP 12 MEQ/L (2-14); CHLORIDE 97 MEQ/L (99-109); MAGNESIUM 2.6 mg/dl (1.3-2.7); SAMPLE HEMOLYSIS CHECK 1; SAMPLE ICTERIC CHECK 0; SAMPLE LIPEMIA CHECK 0; SODIUM 134 MEQ/L (136-147)
[2016-12-30 07:07] LABS: GFR ESTIMATE (CALCULATED) 36 mL/min/; GLUCOSE 195 mg/dL (70-99); UREA NITROGEN (BUN) 59 mg/dL (9-23)
[2016-12-30 07:18] LABS: POTASSIUM 3.8 MEQ/L (3.7-5.4)
[2016-12-30 07:23] LABS: EOSINOPHIL (%) 0 % (0-5); HEMATOCRIT 36.2 % (36.0-46.0); IMMATURE GRANULOCYTE (%) 0.8 % (0.0-0.7); IMMATURE GRANULOCYTE COUNT 0.2 K/uL; INSTRUMENT ABS NEUTROPHIL CT 18.3 K/uL; LYMPHOCYTE COUNT 0.1 K/uL (1.0-2.8); MCH 28.2 PG (29.0-34.0); MCHC 30.9 G/DL (30.0-36.0); MCV 91.2 FL (83-99); MEAN PLAT.VOLUME 12.1 uM^3 (9.5-12.4); MONOCYTE (%) 5.6 % (3-12); MONOCYTE COUNT 1.1 K/uL (0-0.8); NEUTROPHIL COUNT 18.3 K/uL (1.8-6.4); NRBC (%) 0.3 /100 WBC (0-0); PLATELET COUNT 179 K/uL (156-360); RBC DIS.WIDTH-CV 16.2 % (11.8-14.6); RBC DIS.WIDTH-SD 53.6 % (39-53); RED BLOOD COUNT 3.97 M/uL (3.80-5.20)
[2016-12-30 07:24] LABS: WHITE BLOOD COUNT 19.6 K/uL (4.1-10.2)
[2016-12-30 10:19] LABS: BASE EXCESS 3.5 mEq/L (-3 to +3); BICARBONATE 29.1 mEq/L (22-26); CARBOXY HGB 2.1 % (0-5); METHEMOGLOBIN 1.3 % (0-1.5); PCO2 48 mm Hg (35-45); PO2 69 mm Hg (80-100); SITE LB; pH 7.39 (7.35-7.45)
[2016-12-30 10:20] LABS: COMMENTS - BLOOD GASES C+; DEVICE 840; FI02 60 %; MECHANICAL RATE 20 resp/min; MODE A/C; PEEP 10 CM/H20; TIDAL VOLUME 400 ML; TOTAL RESP RATE 20 resp/min
[2016-12-30 12:44] LABS: POINT-OF-CARE METER ID UU13113731
[2016-12-30 16:57] LABS: POINT-OF-CARE METER ID UU14174217
[2016-12-31] VITALS (12 sets, daily range): BP systolic 86–143; BP diastolic 51–87
[2016-12-31 01:01] LABS: POINT-OF-CARE METER ID UU14174217
[2016-12-31 06:14] LABS: POINT-OF-CARE METER ID UU13113731
[2016-12-31 06:31] LABS: HEMATOCRIT 29.7 % (36.0-46.0); MCH 27.8 PG (29.0-34.0); MCHC 32.3 G/DL (30.0-36.0); MCV 86.1 FL (83-99); NRBC (%) 0.2 /100 WBC (0-0); RBC DIS.WIDTH-CV 15.7 % (11.8-14.6); RBC DIS.WIDTH-SD 48.4 % (39-53); RED BLOOD COUNT 3.45 M/uL (3.80-5.20); WHITE BLOOD COUNT 9.3 K/uL (4.1-10.2)
[2016-12-31 06:38] LABS: ANION GAP 12 MEQ/L (2-14); CHLORIDE 98 MEQ/L (99-109); GFR ESTIMATE (CALCULATED) 31 mL/min/; GLUCOSE 204 mg/dL (70-99); MAGNESIUM 2.4 mg/dl (1.3-2.7); SAMPLE HEMOLYSIS CHECK 0; SAMPLE ICTERIC CHECK 0; SAMPLE LIPEMIA CHECK 0; SODIUM 139 MEQ/L (136-147); UREA NITROGEN (BUN) 60 mg/dL (9-23)
[2016-12-31 07:11] LABS: ABS NEUTROPHIL COUNT 9.2; EOSINOPHIL ABS CT 0; HEMATOLOGY COMMENT 1 SN; HYPOCHROMASIA 2+; INSTRUMENT ABS NEUTROPHIL CT 8.7 K/uL; MACROCYTES 1+; MEAN PLAT.VOLUME 11.8 uM^3 (9.5-12.4); MICROCYTOSIS 1+; PLAT.SUFFICIENCY ADEQUATE; POLYCHROMASIA 2+; TARGET CELLS 1+
[2016-12-31 07:12] LABS: PLATELET COUNT UNABLE TO REPORT K/uL (156-360)
[2016-12-31 13:32] LABS: POINT-OF-CARE METER ID UU13113731
[2017-01-02 00:18] LABS: BODY FLUID PH 7.9 (())
== END 2016-12-31 23:59 | DRG 308 ==
LOC: EME 18:17 → EDOF 20:42 → 5EAST 20:42 → 4WEST 20:42 → EDOF 20:42 → 4EAST 20:42 → 4WEST 12-16 11:03 → 5EAST 12-31 16:46
PROVIDERS: Emergency Medicine; Hospitalist; Internal Medicine; Internal Medicine Critical Care Medicine; Internal Medicine Nephrology; Internal Medicine Pulmonary Disease; Obstetrics & Gynecology; Radiology Diagnostic Radiology; Student in an Organized Health Care Education/Training Program
DX: I48.0 Paroxysmal atrial fibrillation (principal); J96.22 Acute and chronic respiratory failure with hypercapnia; J18.9 Pneumonia, unspecified organism; Z68.41 Body mass index [BMI] 40.0-44.9, adult; E87.1 Hypo-osmolality and hyponatremia; J45.901 Unspecified asthma with (acute) exacerbation; J44.1 Chronic obstructive pulmonary disease with (acute) exacerbation; J98.11 Atelectasis; N17.9 Acute kidney failure, unspecified; E87.2 Acidosis; N39.0 Urinary tract infection, site not specified; Z51.5 Encounter for palliative care; Z66 Do not resuscitate; J90 Pleural effusion, not elsewhere classified; R07.89 Other chest pain; E66.01 Morbid (severe) obesity due to excess calories; G30.9 Alzheimer's disease, unspecified; F02.80 Dementia in other diseases classified elsewhere, unspecified severity, without behavioral disturbance, psychotic disturbance, mood disturbance, and anxiety; Z99.81 Dependence on supplemental oxygen; K21.9 Gastro-esophageal reflux disease without esophagitis; G89.29 Other chronic pain; Z87.891 Personal history of nicotine dependence; I11.9 Hypertensive heart disease without heart failure; E11.9 Type 2 diabetes mellitus without complications; E78.5 Hyperlipidemia, unspecified; I27.2 Other secondary pulmonary hypertension; G47.33 Obstructive sleep apnea (adult) (pediatric); J98.6 Disorders of diaphragm; J98.4 Other disorders of lung; T36.8X5A Adverse effect of other systemic antibiotics, initial encounter; M54.2 Cervicalgia; E87.70 Fluid overload, unspecified
CPT/HCPCS: 36600; 71010; 71275; 74177; 80048; 80048 91; 80053; 80069; 80202; 81003; 82533 91; 82803; 82945; 82947 91; 82948; 83615; 83615 91; 83690; 83735; 83880; 83935; 83986 90; 84100; 84155; 84157; 84300; 84443; 84484; 84550; 85025; 85027; 85610; 85730; 87040; 87070; 87075; 87077; 87106; 87147; 87186; 87205; 87641; 88108; 88305; 89051; 92610 GN; 93005; 94002; 94003; 94640; 94640 76; 94660; 94667; 94668; 94760; 94799; 97530 GP; 99202; 99281; 99285; J1160; J1170; J1630; J1720; J1815; J1940; J2250; J2270; J2543; J2704; J2765; J2920; J2930; J3010; J3370; J3480; J7030; J7040; J7042; J7050; J7512; P9047; S0028